=== PATIENT | male | born 1960 | race Caucasian/White ===

== ENCOUNTER → 2018-02-27 | Outpatient (CLI) | payer SELFPAY | LOC: CARD 11:12 | PROVIDERS: ATTEND Nurse Practitioner Family | DX: R01.1 Cardiac murmur, unspecified (principal) | CPT/HCPCS: 93306 ==

== ENCOUNTER → 2019-04-17 | Outpatient (CLI) | payer SELFPAY ==
[~2019-04-17] VITALS: Ht 180.3 cm; Wt 127.5 kg
[~2019-04-17] MED LIST: CATHETER FLUSH 10 ML SYR IV PRN; REGADENOSON 0.4 MG/5 ML SYR (LEXISCAN) IV ONE
[2019-04-17 12:26] VITALS: BP 154/101
[2019-04-17 12:31] VITALS: BP 141/97
--- NOTE | 2019-04-17 16:09 | STRESS TEST ---
DATE OF SERVICE: 04/17/2019 RESTING AND POST REGADENOSON TECHNETIUM-99M TETROFOSMIN SPECT CT IMAGING ORDERING PHYSICIAN: Nimco Sarmiento APRN PRIMARY CARE PHYSICIAN: Nimco Sarmiento APRN CLINICAL DIAGNOSES: Aortic stenosis, chest pain. Baseline images were carried out after injection of 10.61 mCi of technetium-99m Tetrofosmin. This was followed by 0.4 mg regadenoson and 31.4 mCi of technetium-99m Tetrofosmin. The electrocardiogram showed sinus rhythm at baseline. It did not change significantly with regadenoson infusion. The patient did not report symptoms. Review of images at rest and following stress indicates a partially transient perfusion defect in the basal inferior wall. Gated images show normal regional wall motion and left ventricular ejection fraction is calculated to be 60%. Left ventricular end diastolic volume is 115 mL. TID is absent (0.99). CONCLUSIONS: 1. This study is indicative of a relatively small inferior wall myocardial infarction with a small amount of ischemia. 2. Normal regional wall motion. 3. Normal global left ventricular systolic function with a calculated ejection fraction of 60%. Job ID: [id number] DocumentID: [id number] Dictated Date: 04/17/2019 16:01:53 [employer] Date: 04/17/2019 16:08:41 Dictated By: JACE BELLE MD, MA, FACP, FACC,
== END ==
LOC: CARD 10:44
PROVIDERS: ATTEND Nurse Practitioner Family
DX: I35.0 Nonrheumatic aortic (valve) stenosis (principal); I25.9 Chronic ischemic heart disease, unspecified
CPT/HCPCS: 78452; 93017

== ENCOUNTER 2019-06-12 08:58 | Day surgery (SDC) | payer SELFPAY ==
[2019-06-12] VITALS (9 sets, daily range): BP systolic 121–148; BP diastolic 76–95
[~2019-06-12] VITALS: Ht 180 cm; Wt 125.4 kg
[2019-06-12] MEDS ORDERED: NS IV 1000 ML 1,000 ML IV SCH ×2 (09:01→12:27)
[2019-06-12] MEDS ORDERED: HEParin (CATH LAB) 2,000 ML IV ONE (09:03)
[2019-06-12] MEDS ORDERED: NS IV 1000 ML 1,000 ML ONE (09:03)
[2019-06-12] MEDS ORDERED: LIDOCAINE 1% INJ 20 ML 20 ML VIAL ONE (09:03)
[2019-06-12 09:31] LABS: HEMOGLOBIN 16.7 G/DL (13.3-17.7); MEAN PLATELET VOLUME 11.1 FL (7.4-10.4); RED CELL DISTRIBUTION WIDTH 12.4 % (10.0-14.5); WHITE BLOOD COUNT 8.5 10^3/uL (4.3-11.0)
[2019-06-12 09:44] LABS: PROTHROMBIN TIME PATIENT 13.3 SEC (12.2-14.7)
[2019-06-12] MEDS ORDERED: ASPI-999 PO (09:48)
[2019-06-12] MEDS ORDERED: LISI10TA2 PO (09:48)
[2019-06-12] MEDS ORDERED: LOVA20TA2 PO (09:48)
[2019-06-12 09:53] LABS: ALANINE AMINOTRANSFERASE 28 U/L (0-55); ALBUMIN 4.4 GM/DL (3.2-4.5); ALKALINE PHOSPHATASE 69 U/L (40-136); BILIRUBIN,TOTAL 1.2 MG/DL (0.1-1.0); BUN/CREATININE RATIO 8; CALCIUM 9.5 MG/DL (8.5-10.1); CARBON DIOXIDE 26 MMOL/L (21-32); CHLORIDE 105 MMOL/L (98-107); CHOLESTEROL 155 MG/DL (< 200); CREATININE SERUM 1.21 MG/DL (0.60-1.30); GFR ESTIMATED > 60; GLUCOSE 89 MG/DL (70-105); HDL CHOLESTEROL 45 MG/DL (40-60); POTASSIUM 3.9 MMOL/L (3.6-5.0); SODIUM 142 MMOL/L (135-145); TOTAL PROTEIN 7.4 GM/DL (6.4-8.2); TRIGLYCERIDES 94 MG/DL (<150); VLDL CHOLESTEROL 19 MG/DL (5-40)
[2019-06-12] MEDS ORDERED: ACET1TAB37 PO (09:55)
[2019-06-12] MEDS ORDERED: ATOR20TA66 PO (09:55)
[2019-06-12] MEDS ORDERED: MULT1TAB69 PO (09:55)
[2019-06-12] MEDS ORDERED: LISI1TAB6 PO (09:55)
[2019-06-12] MEDS ORDERED: FLU QUADRIvalent (5+ YOA) 2019-2020 (AFLURIA) 0.5 ML IM ONE (10:15)
--- NOTE | 2019-06-12 10:33 | NUR ---
SPOKE WITH PT AND CALLED [facility] TO COMPLETE THE MED REC. THE PT WAS ABLE TO TELL ME HIS MEDS WELL HOW/WHEN HE TAKES THEM. THE FOLLOWING ARE FILL DATES ACCORDING TO [facility]: 01-19-2019 LISINOPRIL/HCTZ #90/90DS 04-18-2019 ATORVASTATIN #90/90DS OTC MEDS: [employer] CORICIDIN PRN ASPIRIN 81MG
[2019-06-12] MEDS ORDERED: MIDAZOLAM 5 MG/5 ML (VERSED) VIAL ONE (11:30)
[2019-06-12] MEDS ORDERED: fentaNYL INJECTION 100 MCG/2 ML AMP ONE (11:30)
--- NOTE | 2019-06-12 12:27 | Cardiac Procedure Note-CS/ASA ---
Pre-Procedure Note Pre-Op Procedure Note H&P Reviewed The H&P was reviewed, patient examined and no changes noted. Date H&P Reviewed: Jun 12, 2019 Time H&P Reviewed: 11:40 Conscious Sedation Pre-Proced Time 11:40 ASA Score 3 For ASA 3 and 4: Consider anesthesia and medical clearance. Also, for patients with a history of failed moderate sedation consider anesthesia. Airway Lungs Heart ASA score ASA 1: a normal healthy patient ASA 2: a patient with a mild systemic disease (mid diabetes, controlled hypertension, obesity ASA 3: a patient with a severe systemic disease that limits activity (angina, COPD, prior Myocardial infarction) ASA 4: a patient with an incapacitating disease that is a constant threat to life (CHF, renal failure) ASA 5: a moribund patient not expected to survive 24 hrs. (ruptured aneurysm) ASA 6: a declared brain- patient whose organs are being harvested. For emergent operations, add the letter E after the classification Mallampati Classification Grade 2 Sedation Plan Analgesia, Amnesia, Plan communicated to team members, Discussed options with patient/fam, Discussed risks with patient/fam The patient is an appropriate candidate to undergo the planned procedure, sedation, and anesthesia. The patient immediately re-assessed prior to indication. JACE BELLE MD FACP FAC CCDS Jun 12, 2019 12:27 POS
[2019-06-12] MEDS ORDERED: PATIENT MAY USE OWN MEDS, ALL PO SCH (12:30)
--- NOTE | 2019-06-12 12:30 | Discharge Inst-Cardiology ---
Discharge Inst-Cardiac Discharge Medications Continued Medications: Acetaminophen/Chlorpheniramine (Coricidin Hbp Cold & Flu Tab) 1 Each Tablet 1 EACH PO Q8H PRN for CONGESTION, TAB Aspirin (Aspirin) 81 Mg Tab.chew 81 MG PO DAILY, TAB Atorvastatin Calcium (Atorvastatin Calcium) 20 Mg Tablet 20 MG PO DAILY, TAB Lisinopril/Hydrochlorothiazide (Lisinopril-Hctz 10-12.5 mg Tab) 1 Each Tablet 1 EACH PO DAILY, TAB LAST FILLED 01-19-2019 #90/90 DAY SUPPLY Multivitamin (Multivitamins) 1 Each Tablet 1 EACH PO DAILY, TAB JACE BELLE MD FACP FAC CCDS Jun 12, 2019 12:30 POS
--- NOTE | 2019-06-12 12:31 | Discharge Inst-Post CATH ---
Discharge Inst-CATH/EP Post Cardiac Cath/EP D/C Inst Follow Up/Plan F/u with Dr Carrillo in 2 weeks ACTIVITY * Go Home directly and rest. * Limit activity of the leg (or wrist if it was used) for 7 days including aerobics, swimming, jogging, bicycling, etc. * Restrict stair-climbing for 7 days if possible, if not, climb up with your no n-cath leg, then bring together on the same step. * Avoid lifting, pushing, pulling or excessive movement of the affected ext remity for 7 days. * Customary sexual activity may be resumed after 2 days-use caution not to use a position that strains or causes pain to the affected extremity. * No driving for 24 hours. * NO SMOKING. * Avoid straining for bowel movements for 7 days. * Gentle walking on level ground is allowed. * Returning to work will depend on the type of procedure and the results. Your doctor will discuss this with you. CALL YOUR DOCTOR FOR ANY OF THE FOLLOWING: *If bleeding from the puncture site occurs- Apply gentle pressure to site with clean cloth and call your doctor or EMS. * If a knot or lump forms under the skin, increases in size, or causes pain. * If bruising appears to be worsening or moving further down your leg instead of disappearing. * Temperature above 101 F. CARE OF YOUR GROIN INCISION; * Bruising or purple discoloration of the skin near the puncture site is common. * You may shower only, no bathtub bathing for 5 days. Be careful to avoid slipping as your leg may feel stiff. * If a closure device was used on your femoral artery, please see the attached guide regarding care of the device and your leg. * Leave dressing on FOR 24 hours. CARE OF YOUR WRIST INCISION; * Bruising or purple discoloration of the skin near the puncture site is common. * You may shower. * DO NOT submerge wrist. * Leave dressing on FOR 24 hours. JACE CARRILLO MD FACP FAC CCDS Jun 12, 2019 12:31 POS
--- NOTE | 2019-06-12 14:57 | CARDIAC CATHETERIZATION ---
DATE OF SERVICE: 06/12/2019 CARDIAC CATHETERIZATION REPORT INDICATIONS: The patient is a 58-year-old man with multiple coronary artery disease risk factors, who had a recent myocardial perfusion imaging study, which was indicative of inferior infarction and ischemia. Cardiac catheterization was carried out today after having obtained an informed consent. DESCRIPTION OF PROCEDURE: He was brought to the cardiac catheterization laboratory in a fasting state. Right groin was prepared and draped in usual sterile fashion. Lidocaine 1% was used for local anesthesia. Modified Seldinger technique was used to advance a 5-[place] sheath in the right femoral artery, 5-[place] JL4 catheter was used for left coronary angiography, 5-[place] JR4 catheter was used for right coronary angiography, 5-[place] pigtail catheter was used for left heart catheterization and left ventricular angiography. The pigtail catheter was pulled back to the aortic root and aortic root angiography was performed. The aortic root angiography was performed because the patient had moderate aortic regurgitation on the echocardiogram carried out previously. Aortic root angiography was done to further determine the extent of aortic regurgitation. The catheter was then removed. Angiography of the right femoral artery was carried out through the sheath. Mynx was used to achieve hemostasis. He tolerated the procedure well. HEMODYNAMICS: Left ventricular end-diastolic pressure following coronary angiography was 12 mmHg. There is no significant pressure gradient on pullback across the aortic valve. Ascending aortic pressure was 114/72 with a mean of 74 mmHg. CORONARY ANGIOGRAPHY: Left main coronary artery, left anterior descending, left circumflex and right coronary artery do not exhibit angiographically significant coronary artery disease. Minimal coronary plaque is seen in the right coronary artery. Right coronary artery is dominant. LEFT VENTRICULAR ANGIOGRAPHY: Left ventricular angiography was carried out in the right anterior oblique projection. Global left ventricular systolic function is normal. No regional wall motion abnormalities seen. Left ventricular ejection fraction is approximately 60%. AORTIC ROOT ANGIOGRAPHY: Aortic root angiography indicated mild to moderate aortic regurgitation. There does not appear to be evidence of significant aortic root dilatation or aneurysm. The aortic valve leaflets exhibit fair to good leaflet excursion. Aortic valve leaflet structure is not adequately visualized on this view. CONCLUSIONS: 1. Angiographically minimal coronary artery disease. 2. Normal global left ventricular systolic function with ejection fraction approximately 60%. 3. Mild to moderate aortic regurgitation. 4. Normal left ventricular end-diastolic pressure. DISCUSSION AND RECOMMENDATIONS: Based on the results of the study, it appears appropriate to continue a conservative approach. Risk factor modification has been reviewed. Outpatient followup is advised. Job ID: [id number] DocumentID: [id number] Dictated Date: 06/12/2019 12:21:37 Rn Home Health Date: 06/12/2019 14:57:00 Dictated By: JACE BELLE MD, MA, FACP, FACC,
== END 2019-06-12 15:25 | disposition home or self-care (01) ==
LOC: CATH 08:58
PROVIDERS: ATTEND Internal Medicine Cardiovascular Disease
DX: I35.1 Nonrheumatic aortic (valve) insufficiency (principal); I25.10 Atherosclerotic heart disease of native coronary artery without angina pectoris; I10 Essential (primary) hypertension; E66.09 Other obesity due to excess calories; Z68.38 Body mass index [BMI] 38.0-38.9, adult; Z79.82 Long term (current) use of aspirin; Z79.899 Other long term (current) drug therapy
CPT/HCPCS: 36415; 80053; 80061; 85027; 85610; 85730; 87081; 93458; 93567

== ENCOUNTER → 2019-07-25 | Outpatient (CLI) | payer SELFPAY ==
[~2019-07-25] MED LIST changes: +ACET1TAB37 PO; +ASPI-999 PO; +ATOR20TA66 PO; -CATHETER FLUSH 10 ML SYR IV PRN; +LISI10TA2 PO; +LISI1TAB6 PO; +LOVA20TA2 PO; +MULT1TAB69 PO; -REGADENOSON 0.4 MG/5 ML SYR (LEXISCAN) IV ONE
== END ==
LOC: CARD 10:54
PROVIDERS: ATTEND Internal Medicine Cardiovascular Disease
DX: I35.1 Nonrheumatic aortic (valve) insufficiency (principal); I25.10 Atherosclerotic heart disease of native coronary artery without angina pectoris; E66.9 Obesity, unspecified
CPT/HCPCS: 93306

== ENCOUNTER → 2020-05-27 | Outpatient (CLI) | payer SELFPAY ==
[~2020-05-27] MED LIST changes: +LISI1TAB29 PO; -LISI1TAB6 PO; +MULT-567 PO; -MULT1TAB69 PO
== END ==
LOC: CARD 12:55
PROVIDERS: ATTEND Internal Medicine Cardiovascular Disease
DX: I25.10 Atherosclerotic heart disease of native coronary artery without angina pectoris (principal); F52.21 Male erectile disorder; I35.1 Nonrheumatic aortic (valve) insufficiency; E66.9 Obesity, unspecified; R29.818 Other symptoms and signs involving the nervous system
CPT/HCPCS: 93306

== ENCOUNTER → 2021-12-04 | Outpatient (CLI) | payer SELFPAY ==
[~2021-12-04] MED LIST changes: -LISI10TA2 PO; +LISI10TA25 PO; -LISI1TAB29 PO; +LISI1TAB44 PO
== END ==
LOC: CARD 14:00
PROVIDERS: ATTEND Nurse Practitioner Family
DX: I35.0 Nonrheumatic aortic (valve) stenosis (principal); I10 Essential (primary) hypertension
CPT/HCPCS: 93306